=== PATIENT | male | born 2000 | race African-American/Black ===

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

== ENCOUNTER 2022-08-29 13:03 | Emergency (ER) | payer SELFPAY ==
[~2022-08-29] VITALS: Ht 185 cm; Wt 78.0 kg
[2022-08-29] MEDS ORDERED: fentaNYL INJ 100 MCG/2 ML AMP IVP STA (13:29)
[2022-08-29 13:35] LABS: BASOPHILS % (AUTO) 1 % (0-10); EOSINOPHILS % (AUTO) 1 % (0-10); HEMATOCRIT 39 % (40-54); HEMOGLOBIN 13.3 g/dL (13.3-17.7); LYMPHOCYTES % (AUTO) 20 % (12-44); MEAN CORPUSCULAR HEMOGLOBIN 29 pg (25-34); MEAN CORPUSCULAR HGB CONC 35 g/dL (32-36); MEAN CORPUSCULAR VOLUME 85 fL (80-99); MEAN PLATELET VOLUME 9.7 fL (9.0-12.2); MONOCYTES # (AUTO) 0.6 10^3/uL (0.0-1.0); MONOCYTES % (AUTO) 12 % (0-12); NEUTROPHILS # (AUTO) 3.3 10^3/uL (1.8-7.8); NEUTROPHILS % (AUTO) 67 % (42-75); PLATELET COUNT 245 10^3/uL (130-400); WHITE BLOOD COUNT 4.9 10^3/uL (4.3-11.0)
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
[2022-08-29 13:43] LABS: ALBUMIN 4.2 GM/DL (3.2-4.5); CHLORIDE 106 MMOL/L (98-107); POTASSIUM 4.1 MMOL/L (3.6-5.0); SODIUM 138 MMOL/L (135-145)
[2022-08-29 13:45] LABS: CALCIUM 9.4 MG/DL (8.5-10.1)
[2022-08-29 13:46] LABS: GLUCOSE 88 MG/DL (70-105); TOTAL PROTEIN 7.4 GM/DL (6.4-8.2)
[2022-08-29 13:47] LABS: CARBON DIOXIDE 25 MMOL/L (21-32)
[2022-08-29 13:48] LABS: BILIRUBIN,TOTAL 0.9 MG/DL (0.1-1.0)
[2022-08-29 13:49] LABS: ALKALINE PHOSPHATASE 70 U/L (40-136)
[2022-08-29 13:50] LABS: CREATININE SERUM 1.04 MG/DL (0.60-1.30); GFR ESTIMATED 103
[2022-08-29 13:51] LABS: BUN/CREATININE RATIO 9
[2022-08-29 13:52] LABS: ALANINE AMINOTRANSFERASE 17 U/L (0-55)
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
[2022-08-29 14:21] LABS: BILIRUBIN,URINE NEGATIVE (NEGATIVE); CLARITY,URINE CLEAR; COLOR,URINE YELLOW; GLUCOSE, URINE (UA) NEGATIVE (NEGATIVE); KETONES,URINE NEGATIVE (NEGATIVE); LEUKOCYTE ESTERASE ,URINE NEGATIVE (NEGATIVE); NITRITE,URINE NEGATIVE (NEGATIVE); PH,URINE 6.5 (5-9); PROTEIN,URINE NEGATIVE (NEGATIVE)
[2022-08-29 14:27] LABS: BACTERIA,URINE NEGATIVE /HPF; SQUAMOUS EPITHELIAL CELL,UR 0-2 /HPF
[2022-08-29] MEDS ORDERED: TETANUS,DIPTH,PERTUSS P/F (BOOSTRIX) 0.5 ML VIAL IM ONE (14:30)
[2022-08-29 14:35] LABS: AMPHETAMINE SCREEN, URINE NEGATIVE (NEGATIVE); BARBITURATE SCREEN URINE NEGATIVE (NEGATIVE); BENZODIAZEPINES SCREEN URINE NEGATIVE (NEGATIVE); CANNABINOID SCREEN, URINE POSITIVE (NEGATIVE); COCAINE SCREEN URINE NEGATIVE (NEGATIVE); METHADONE STAT NEGATIVE (NEGATIVE); OPIATE SCREEN URINE NEGATIVE (NEGATIVE); OXYCODONE STAT NEGATIVE (NEGATIVE); PROPOXYPHENE STAT NEGATIVE (NEGATIVE); TRICYCLIC ANTIDEPRESSANTS SCRE NEGATIVE (NEGATIVE)
[2022-08-29] MEDS ORDERED: IBUPROFEN 800 MG (MOTRIN) TAB PO STA (15:34)
[2022-08-29] MEDS ORDERED: AMOX1TAB12 PO (15:34)
[2022-08-29 15:39] VITALS: BP 110/56
== END 2022-08-29 15:49 | disposition home or self-care (01) ==
LOC: EDUNIT# 13:03 → ER 13:05
DX: S06.0XAA Concussion with loss of consciousness status unknown, initial encounter (principal); S03.2XXA Dislocation of tooth, initial encounter; F17.290 Nicotine dependence, other tobacco product, uncomplicated; Z23 Encounter for immunization; Y04.8XXA Assault by other bodily force, initial encounter; Y92.488 Other paved roadways as the place of occurrence of the external cause
CPT/HCPCS: 70450; 70486; 72125; 80053; 80306; 81000; 85025; 99284; G0480; 36415; 80320; 90715

== ENCOUNTER 2023-01-29 01:24 | Emergency (ER) | payer OTHER ==
[~2023-01-29] VITALS: Ht 185.5 cm; Wt 100.0 kg
[~2023-01-29 01:24] MED LIST: AMOX1TAB12 PO
[2023-01-29 02:05] VITALS: BP 116/65
[2023-01-29 02:45] LABS: AMPHETAMINE SCREEN, URINE NEGATIVE (NEGATIVE); BARBITURATE SCREEN URINE NEGATIVE (NEGATIVE); CANNABINOID SCREEN, URINE POSITIVE (NEGATIVE); COCAINE SCREEN URINE NEGATIVE (NEGATIVE); METHADONE STAT NEGATIVE (NEGATIVE); OPIATE SCREEN URINE NEGATIVE (NEGATIVE); OXYCODONE STAT NEGATIVE (NEGATIVE); TRICYCLIC ANTIDEPRESSANTS SCRE NEGATIVE (NEGATIVE)
[2023-01-29 02:46] LABS: BACTERIA,URINE TRACE /HPF; BILIRUBIN,URINE 1+ (NEGATIVE); CLARITY,URINE CLEAR; COLOR,URINE YELLOW; GLUCOSE, URINE (UA) NEGATIVE (NEGATIVE); KETONES,URINE TRACE (NEGATIVE); LEUKOCYTE ESTERASE ,URINE NEGATIVE (NEGATIVE); NITRITE,URINE NEGATIVE (NEGATIVE); PROTEIN,URINE TRACE (NEGATIVE); RBC,URINE 0-2 /HPF
[2023-01-29 02:47] LABS: HYALINE CASTS, URINE 0-2 /LPF
[2023-01-29] MEDS ORDERED: RX-NAPROXEN (NAPROSYN) 250 MG TAB PPK#4 PO STA (03:11)
[2023-01-29] MEDS ORDERED: NAPR500T8 PO (03:20)
--- NOTE | 2023-01-29 03:20 | ED General ---
General Chief Complaint: Cough/Cold/Flu Symptoms Stated Complaint: PAIN ALL OVER Nursing Triage Note: Pt presents with c/o of all over body pain that started approx 1 week ago. He reports increased pain in chest with inspiration, and sinus drainage. Pt states he's supposed to take 2 medications, but unsure what they are for. Possibly naproxen and unknown. Source of Information: Patient (LIMITED, VERY VAGUE HISTORIAN) History of Present Illness Date Seen by Provider: Jan 29, 2023 Time Seen by Provider: 02:07 Initial Comments PT WALKS INTO ER, CARRYING A LARGE PIZZA BOX C/O GENERALIZED BODY PAIN X 1 WEEK C/O CLEAR RUNNY NOSE STATES HIS CHEST HURTS TO TAKE A DEEP BREATH NO FEVER/SWEATS/CHILLS NO COUGH NO HEADACHE PT IS HOMELESS, CAME HERE FROM [place] A FEW MONTHS AGO HAS BEEN AT THE [employer], BUT STATES "MY STUFF'S AT THE LIBRARY" HE STATES HE HAS BEEN ON NAPROXEN BUT DOES NOT KNOW WHAT FOR OR HOW LONG AGO HE WAS PRESCRIBED IT OR HOW LONG IT HAS BEEN SINCE HE HAS TAKEN IT HE ALSO STATES HE HAS BEEN ON MEDICATION FOR DEPRESSION AND ANXIETY, BUT DOES NOT KNOW WHAT MEDICATION IT WAS OR HOW LONG AGO HE WAS PRESCRIBED IT OR HOW LONG IT HAS BEEN SINCE HE HAS TAKEN IT. PT HAS NOT TAKEN ANYTHING FOR HIS CURRENT COMPLAINTS. HE IS NOT COVID OR FLU VACCINATED PT SMOKES MARIJUANA DAILY, WELL CIGARETTES AND ALCOHOL WHEN HE CAN GET IT. PCP; NONE Allergies and Home Medications Allergies Coded Allergies: No Known Drug Allergies (Unverified , 08/29/22) Patient Home Medication List Home Medication List Reviewed: Yes Amoxicillin/Potassium Clav (Amox Tr-K Clv 875-125 mg Tab) 875 Mg-125 Mg Tablet, 1 EACH PO BID Prescribed by: FAVIO TRUJILLO on 08/29/22 1534 Naproxen (Naproxen) 500 Mg Tablet.dr, 500 MG PO BID Prescribed by: RANDY RAI on 01/29/23 0320 Review of Systems Review of Systems Constitutional: no symptoms reported EENTM: see HPI, nose congestion; No throat pain Respiratory: see HPI; No cough, No short of breath Cardiovascular: see HPI Gastrointestinal: no symptoms reported Genitourinary: no symptoms reported Musculoskeletal: see HPI Skin: no symptoms reported Psychiatric/Neurological: No Symptoms Reported Hematologic/Lymphatic: No Symptoms Reported Immunological/Allergic: no symptoms reported Past Savfsxs-Dbxltj-Ccsvvo Hx Patient Social History Tobacco Use?: Yes Tobacco type used: Cigarettes Use of E-Cig and/or Vaping dev: Yes E-Cig or Vaping type used: Nicotine Substance use?: Yes Substance type: Marijuana Alcohol Use?: Yes Immunizations Up To Date Influenza Vaccine Up-to-Date: No; Not Current First/Initial COVID19 Vaccinat: denies Past Medical History Surgeries: No Respiratory: No Cardiac: No Neurological: No Genitourinary: No Gastrointestinal: No Musculoskeletal: No Endocrine: No HEENT: No Cancer: No Psychosocial: Yes Anxiety, Depression Integumentary: No Blood Disorders: No Physical Exam Vital Signs Vital Signs - First Documented 01/29/23 02:05 Temp 36.4 Pulse 54 Resp 16 B/P (MAP) 116/65 (82) Capillary Refill : Less Than 3 Seconds Height, Weight, BMI Height: '" Weight: lbs. oz. kg; 29.00 BMI Method: General Appearance: No Apparent Distress, WD/WN, Thin, Other (VERY FLAT AFFECT, APPEARS TO BE UNDER THE INFLUENCE OF SOME SUBSTANCE/S. REEKS OF MARIJUANA. HAS MULTIPLE PATCHES ON HIS ABDOMEN--PT STATES enVerid GAVE THEM TO HIM TO KEEP WARM. ) HEENT: PERRL/EOMI, TMs Normal, Moist Mucous Membranes, Other (CLEAR POST NASAL DRAINAGE. NO SINUS TENDERNESS. ) Neck: Normal Inspection Respiratory: Normal Breath Sounds, No Accessory Muscle Use, No Respiratory Dist ress Cardiovascular: Regular Rate, Rhythm, No Murmur Gastrointestinal: Normal Bowel Sounds, Non Tender, Soft Back: Normal Inspection Extremity: Normal Capillary Refill, Normal Inspection, Normal Range of Motion, Non Tender, No Calf Tenderness, No Pedal Edema Neurologic/Psychiatric: Alert, Oriented x3, No Motor/Sensory Deficits, drafter civil (cad) II- XII Norm as Tested Skin: Normal Color (PT IS BLACK), Warm/Dry; No Rash Progress/Results/Core Measures Suspected Sepsis SIRS Temperature: Pulse: 54 Respiratory Rate: 16 Blood Pressure 116 /65 Mean: 82 Results/Orders Lab Results Laboratory Tests Test 01/29/23 02:16 01/29/23 02:20 Range/Units Urine Color YELLOW Urine Clarity CLEAR Urine pH 6.0 5-9 Urine Specific [place] 1.025 H 1.016-1.022 Urine Protein TRACE H NEGATIVE Urine Glucose (UA) NEGATIVE NEGATIVE Urine Ketones TRACE H NEGATIVE Urine Nitrite NEGATIVE NEGATIVE Urine Bilirubin 1+ H NEGATIVE Urine Urobilinogen 1.0 < = 1.0 MG/DL Urine Leukocyte Esterase NEGATIVE NEGATIVE Urine RBC (Auto) NEGATIVE NEGATIVE Urine RBC 0-2 /HPF Urine WBC 2-5 /HPF Urine Crystals NONE /LPF Urine Bacteria TRACE /HPF Urine Casts PRESENT /LPF Urine Hyaline Casts 0-2 H /LPF Urine Mucus LARGE H /LPF Urine Culture Indicated NO Urine Opiates Screen NEGATIVE NEGATIVE Urine Oxycodone Screen NEGATIVE NEGATIVE Urine Methadone Screen NEGATIVE NEGATIVE Urine Barbiturates Screen NEGATIVE NEGATIVE Ur Tricyclic Antidepressants Screen NEGATIVE NEGATIVE Urine Phencyclidine Screen NEGATIVE NEGATIVE Urine Amphetamines Screen NEGATIVE NEGATIVE Urine Methamphetamines Screen NEGATIVE NEGATIVE Urine Benzodiazepines Screen NEGATIVE NEGATIVE Urine Cocaine Screen NEGATIVE NEGATIVE Urine Cannabinoids Screen POSITIVE H NEGATIVE Influenza Type A (RT-PCR) Not Detected Not Detecte Influenza Type B (RT-PCR) Not Detected Not Detecte SARS-CoV-2 RNA (RT-PCR) Not Detected Not Detecte My Orders Orders - RANDY RAI DO Covid 19 Inhouse Test (01/29/23 02:08) Drug Screen Stat (Urine) (01/29/23 02:08) Ua Culture If Indicated (01/29/23 02:08) Influenza A And B By Pcr (01/29/23 02:08) Rx-Naproxen (Rx-Naprosyn) (01/29/23 03:11) Vital Signs/I&O 01/29/23 02:05 Temp 36.4 Pulse 54 Resp 16 B/P (MAP) 116/65 (82) Capillary Refill : Less Than 3 Seconds Blood Pressure Mean: 82 Progress Note : Progress Note PPE WORN COVID AND FLU TESTING DONE AND BOTH ARE NEGATIVE UA DOES NOT SHOW BLOOD OR INFECTION UDS + FOR MARIJUANA PT HAS NORMAL EXAM, NORMAL VITALS IS AFEBRILE, DOES NOT APPEAR ILL OR TO BE IN ANY DISCOMFORT OR DISTRESS PT STATES THIS IS AN ONGOING PROBLEM DISCUSSED TEST RESULTS, MEDICATIONS, SYMPTOMATIC TREATMENT, NEED FOR FOLLOW UP AND RETURN PRECAUTIONS. REVIEWED PRIOR RECORDS--2 PRIOR ER VISITS SINCE AUGUST FOR UNRELATED COMPLAINTS. Departure Impression Primary Impression: Upper respiratory infection Additional Impressions: Generalized pain Marijuana use Disposition: 01 HOME, SELF-CARE Condition: Stable Departure-Patient Inst. Decision time for Depature: 03:10 Referrals: NO,LOCAL PHYSICIAN (PCP/Family) Primary Care Physician Patient Instructions: Chronic Pain (DC), Cough, Runny Nose, and the Common Cold (DC) Add. Discharge Instructions: TAKE TYLENOL 1 GRAM 4 TIMES A DAY FOR PAIN LOTS OF FLUIDS NO ALCOHOL NO DRUGS OVER THE COUNTER MEDICATIONS FOR COLD SYMPTOMS FOLLOW UP WITH DR OF CHOICE NEXT WEEK IF NO IMPROVEMENT All discharge instructions reviewed with patient and/or family. Voiced understanding. Scripts Naproxen (Naproxen) 500 Mg Tablet. 500 MG PO BID, #20 TAB Prov: RANDY RAI DO 01/29/23 RANDY RAI DO Jan 29, 2023 03:20
== END 2023-01-29 03:35 | disposition home or self-care (01) ==
LOC: EDUNIT# 01:24 → ER 01:25
DX: J06.9 Acute upper respiratory infection, unspecified (principal); R52 Pain, unspecified; F12.90 Cannabis use, unspecified, uncomplicated; F17.210 Nicotine dependence, cigarettes, uncomplicated; F17.290 Nicotine dependence, other tobacco product, uncomplicated
CPT/HCPCS: 80306; 81000; 87636; 99285